=== PATIENT | female | born 1985 ===

== ENCOUNTER 2016-12-12 06:38 | Day surgery (SDC) | payer OTHER ==
[2015-04-06 20:05] VITALS: BMI 27.8
[2016-12-12] MEDS ORDERED: ceFAZolin IV 2 gm in Dextrose 1 GM/50 ML BAG IVPB ONE (07:40)
[2016-12-12] MEDS ORDERED: Bupivacaine-Epi 0.25%-1:200,000 PF Inj ONE ×2 (07:40→07:41)
[2016-12-12] MEDS ORDERED: Midazolam 2 MG/2 ML VIAL ONE (08:14)
[2016-12-12] MEDS ORDERED: Propofol 10 mg/ml Inj (20 ML) ONE (08:14)
[2016-12-12] MEDS ORDERED: Lactated Ringer's 1,000 ML IV ONE ×2 (08:21→10:00)
[2016-12-12] MEDS ORDERED: Rocuronium 10 mg/ml (5 ml) ONE (09:41)
[2016-12-12] MEDS ORDERED: Neostigmine Methylsulfate 3mg/3ml Syringe IV ONE (09:46)
[2016-12-12] MEDS ORDERED: HYDROmorphone 0.5 mg/0.5 ml ISec IVP PRN (09:52)
--- NOTE | 2016-12-12 10:20 | PCM.SURG1 ---
Surgeon's Initial Post Op Note - Surgeon's Notes Surgeon: Stanley Gray MD Jewellery Designer: Levi Lehman Type of Anesthesia: General Endo, Local Pre-Operative Diagnosis: Fibroid uterus. Prolapse uterus. Abnormal uterine bleeding. Chronic pelvic pain Operative Findings: Bulky prolpased uterus, approx 12 weeks size, normal oppearing ovaries and bladder anatomy. Ureters efluxing urine freely Post-Operative Diagnosis: Fibroid uterus. Prolapse uterus. Abnormal uterine bleeding. Chronic pelvic pain Operation Performed: Total robotic hysterectomy bilateral salpingectomy >250g. UTerosacroligament suspenssion. Cystoscopy Specimen/Specimens Removed: Uterus, cervix and tubes Estimated Blood Loss: EBL {In ML}: 10 Blood Products Given: N/A Drains Used: No Drains Post-Op Condition: Good Date of Surgery/Procedure: 12/12/16 Time of Surgery/Procedure: 10:19
--- NOTE | 2016-12-12 10:23 | PCM.OP ---
Operative Report - Operative Report Date of Surgery/Procedure: 12/12/16 Time of Surgery/Procedure: 10:20 Surgeon: Stanley De La Fuente MD Senior Tax Accountant: Levi Lehman Anesthesia/Sedation: Gen. anesthesia with ET tube Pre-Operative Diagnosis: Fibroid uterus. Prolapse uterus. Abnormal uterine bleeding. Chronic pelvic pain Post-Operative Diagnosis: Fibroid uterus. Prolapse uterus. Abnormal uterine bleeding. Chronic pelvic pain. endometriosis Indication for Surgery: Chronic pelvic pain. Prolapse uterus. Fibroid uterus. Abnormal uterine bleeding Operative Findings: Bulky uterus, fibroids throughout, dominant fibroid in posterior right portion of uterine wall, normal ovariesl, normal bladder and ureters anatomy as per cystoscopy Procedure/Operation Description: 1. Total robotic hysterectomy Bilateral salpingectomy >250g. 2. Colpopexy / uterosacroligament suspenssion. 3. Cystosocpy. Detailed Operative Report. This is a 31 years old female with chronic pelvic pain, fibroid uterus, prolapsed uterus and abnormal uterine bleeding. The patient completed an extensive preoperative workup, which included an ultrasound, as well as a pap smear and an endometrial biopsy, chemistry and hematology studies. The patient reported these symptoms and problems as debilitating, and adversely affecting her quality of life. Following a period of failed conservative management, and patient decision was made to proceed with a more invasive approach to address the above noted problems. A decision was finally made to proceed with a total robotic assisted hysterectomy, bilateral salpingectomy, and vaginal vault suspension. A detailed description of this robotic procedure was given to the patient, all risks and benefits of the surgical modality was reviewed, printed material was also given to the patient regarding robotic surgery. The patient fully understood all the risks and benefits and elected to proceed with this proposed procedure. The patient is made it clear that she has completed childbearing and has no intentions of any future pregnancies. Patient understands the final condition following hysterectomy and inability to conceive any future pregnancies. After proper consent was obtained from the patient was taken to the operating room, proper patient identification was completed. She was placed in dorsal lithotomy position; general anesthesia was induced without difficulty. Her legs were placed in adjustable Henry stirrups. Careful attention was placed not to over-flex or over-rotate the lower extremities at the hip or the knee joints. She was prepped and draped appropriately for robotic assisted hysterectomy. Koo catheter was inserted under sterile conditions. A weighted speculum was placed in the vagina, anterior lip of cervix was grasped with a tenaculum, and a V-care uterine manipulator was inserted through the cervix and secured. The weighted speculum and tenaculum were removed from the patient's vagina and attention was turned to the patient' s abdomen. Local anesthetic solutions of 0.25% Marcaine with epinephrine were utilized to infiltrate the skin prior to all abdominal skin incisions. A total of 15 mL of 0.25% Marcaine was utilized throughout the procedure. While tenting the abdominal wall, a Veres needle was inserted through the umbilicus and a pneumoperitoneum was obtained. Approximately 3 cm above the umbilicus in the midline, a 1 cm incision was made with a scalpel and a trocar and sleeve were introduced. A robotic camera was inserted and an initial survey of the patient's abdomen revealed an enlarged bulky uterus, boggy in appearance. Both ovaries appeared normal with normal appearing fallopian tubes. The patient was placed in Trendelenburg position ready for a da Memo robotic system to be docked. 3 robotic ports were utilized for this procedure. The camera port was placed in the periumbilical fold approximately 8 mm in size. The first robotic port was placed on the patient's right side approximately 3 cm superior to the right superior iliac crest. The second robotic port was placed 3 cm superior to the left superior iliac crest. The third robotic port was placed approx. 8 cm right lateral the camera port. All ports were approx. aligned along the same horizontal line on the abdomen in an arch like fashion. An administrative office assistant port was placed approximately 5 cm left lateral to midline along the suprapubic region. For the administrative office assistant port we utilized the Versa step trocar system. All trocars were inserted under direct visualization. The placement of the trocars was all accomplished under careful and meticulous placement under direct visualization. Following the placement of all trocars, the da Memo robotic system was docked in a parallel method without difficulty. The following instruments were utilized for this procedure: the bipolar cautery device, a monopolar kaley and finally a ProGrasp. Meticulous and careful lysis of adhesions as well as enterolysis was accomplished utilizing the monopolar kaley and bipolar device. Prior to the start of the hysterectomy, lesions involving the pelvic sidewalls in close proximity to both ureters, exploration of the ureters and their courses was necessary. Following meticulous and careful dissection into the pelvic sidewall, both ureters were explored and visualized, peristalsis bilaterally. On the patient's right side, the utero-ovarian and the round ligaments were identified cauterized and transected, the broad ligament was divided all the way down to the utero cervical junction bladder flap was then created by transecting the visceroperitoneum over the bladder reflection. In a similar fashion, the left round ligament, utero-ovarian ligament and broad ligament were cauterized sealed and transected, taken down to the level of the cervical uterine junction. Uterine vessels on both sides were sealed and transected. The Uterosacral ligaments were sealed and transected. The monopolar kaley and PK were utilized to complete the colpotomy incision around the care vaginal ring. Excellent hemostasis was noted. The uterus, cervix, ovaries and fallopian tubes were delivered transvaginal through the colpotomy incision and sent to pathology for permanent analysis. The colpotomy incision was closed with 2-0 v LOC in a continuous fashion with excellent hemostasis. The vaginal vault suspension was achieved by suspending the vaginal cuff to the base of the uterosacral ligaments bilaterally. For uterosacral ligament suspension portion of the procedure, the ureters were once again identified to avoid possible compromise or kinking while suspending the vaginal vault. A 2-0 permanent suture material (Harvey-Los) was utilized to suspend the uterosacral ligaments from the base to the vaginal vault cuff incision including both anterior and posterior aspect of the colpotomy incision. Utilizing a 3-0 Monocryl suture, the peritoneum over the colpotomy incision and uterosacral ligaments was re- approximated in a continuous fashion. The abdomen was throughout irrigated and cleared of all clots and debris. FloSeal as well as Interceed was applied to the incision sites. Excellent hemostasis was again noted. All robotic and laparoscopic instruments removed under direct visualization. The robotic arms were undocked, and a da Memo robotic system was wheeled away from the patient' s bedside. Both administrative office assistant and camera ports were closed at the fascial layer utilizing a 2-0 Vicryl suture material in interrupted fashion. Pneumoperitoneum was reduced and all skin incisions were closed utilizing 4-0 Monocryl in a subcutaneous fashion. Dermabond was applied to all incisions. Due to the complexity of this hysterectomy and colpopexy, a diagnostic cystoscopy was completed. The Koo catheter was removed; the bladder was distended with approximately 350 cc of normal saline. A 30 cystoscope was introduced and a survey of the bladder anatomy was completed. The base, and the dome of the bladder appeared normal, both ureteral orifices appeared normal and were efluxing urine freely. The urethra appeared normal. A Koo catheter was reinserted. Vaginal packing was inserted to be removed the next morning. Patient emerged from general anesthesia without difficulty, and was taken to recovery room in stable condition. Prior to incision the patient received antibiotics, prior to closure sponge lap and needle counts were correct x2. Estimated Blood Loss: 10ml Blood Replaced: none Sponge/Instrument Count: normal Drains: none Complications: none Specimen: uterus, cervix and tubes Discharge & Condition: discharge home in stable condition when condition made
[2016-12-12] MEDS ORDERED: Morphine 4 MG/ML VIAL IV PRN (10:25)
[2016-12-12] MEDS ORDERED: Sodium Chloride 0.9% 1,000 ML IV SCH (10:30)
[2016-12-12] MEDS ORDERED: ceFAZolin IV 1 gm in Dextrose 1 GM/50 ML BAG IVPB SCH (10:30)
[2016-12-12] MEDS ORDERED: Sodium Chloride 0.9% 1,000 ML IV ONE (14:00)
[2016-12-12] MEDS: ceFAZolin IV 1 gm in Dextrose 1 GM/50 ML BAG IVPB SCH (17:42)
[2016-12-12] MEDS: Oxycodone/Acetaminophen 5/325 mg Tab PO PRN (23:57)
[2016-12-13 08:21] VITALS: BP 94/62; PULSE 80; RESP 18; TEMP 98.9; O2SAT 100
[2016-12-13] MEDS: Oxycodone/Acetaminophen 5/325 mg Tab PO PRN (08:39)
[2016-12-13] MEDS: ceFAZolin IV 1 gm in Dextrose 1 GM/50 ML BAG IVPB SCH ×2 (08:41)
[2016-12-13 09:05] LABS: MEAN CELL VOLUME 89.1 fL (81.0-99.0); MEAN CORPUSCULAR HEMOGLOBIN 29.9 pg (27.0-31.0); MEAN CORPUSCULAR HGB CONC 33.6 g/dL (33.0-37.0); MEAN PLATELET VOLUME 10.3 fL (7.2-11.7); WHITE BLOOD COUNT 7.8 K/uL (4.8-10.8)
--- NOTE | 2016-12-13 10:22 | CP.PCM.PN ---
Subjective - Date & Time of Evaluation Date of Evaluation: 12/13/16 Time of Evaluation: 10:20 - Subjective Subjective: Patient states pain is well controlled. She says she feels a little dizzy after the pain medication, but says she also did not eat anything yet. Admits to passing gas, +void, is out of bed to chair and walked a little today. Objective - Vital Signs/Intake and Output Vital Signs (last 24 hours): Temp Pulse Resp BP Pulse Ox 98.9 F 80 18 94/62 L 100 12/13/16 08:00 12/13/16 08:00 12/13/16 08:00 12/13/16 08:00 12/13/16 08:00 Intake and Output: 12/13/16 12/13/16 06:59 18:59 Output Total 2500 Balance -2500 - Medications Medications: Current Medications Morphine Sulfate (Morphine) 4 mg IV Q4H PRN PRN Reason: Pain, moderate (4-7) Oxycodone/Acetaminophen (Percocet 5/325 Mg Tab) 1 tab PO Q4 PRN PRN Reason: Pain, Mild (1-3) Stop: 12/15/16 10:26 Last Admin: 12/13/16 08:39 Dose: 1 tab - Labs Labs: 12/13/16 09:00 - Constitutional Appears: Well, No Acute Distress - GI/Abdominal Exam GI & Abdominal Exam: Soft, Normal Bowel Sounds Additional comments: slightly distended, soft, incisions intact, dry, no erythema scant vag bleeding calves soft NT neg homans Assessment and Plan (1) Fibroid uterus Assessment & Plan: POD#1 s/p total robotic hysterectomy bilateral salpingectomy, colpopexy, uterosacrolig susp, cystoscopy -d/c home today -f/u 2 weeks call for appointment -rx percocet Dr. Gray, stool softeners -d/w Dr. Gray, agrees with above Status: Acute (2) Prolapsed uterus Status: Acute (3) Abnormal uterine bleeding Status: Acute (4) Chronic pelvic pain in female Status: Acute (5) Endometriosis Status: Acute
[2016-12-13] MEDS ORDERED: Sodium Chloride 0.9% 1,000 ML IV SCH (10:30)
[2016-12-13] MEDS ORDERED: Influenza Vaccine 60 mcg/0.5 mL SYR (4YR UP) IM ONE (14:42)
== END 2016-12-13 14:30 | disposition home or self-care (01) ==
LOC: C.SDS 06:38 → C.4M 10:25 → C.SDS 12-13 14:30
PROVIDERS: ATTEND Obstetrics & Gynecology
DX: D25.1 Intramural leiomyoma of uterus (principal); N84.0 Polyp of corpus uteri; R10.2 Pelvic and perineal pain; N93.9 Abnormal uterine and vaginal bleeding, unspecified; N88.8 Other specified noninflammatory disorders of cervix uteri; N81.4 Uterovaginal prolapse, unspecified; N80.0 Endometriosis of uterus
CPT/HCPCS: 36415; 52000; 57282; 58262; 85027; 86850; 86900; 88309; 97116; 97161; G8978; G8979; G8980; J0690; J1100; J1170; J1885; J2001; J2250; J2405; J2704; J2710; J3010; J7030; J7040; J7120